=== PATIENT | female | born 1995 | race Caucasian/White ===

== ENCOUNTER 2018-07-31 12:21 | Emergency (ER) | payer MEDICAID, OTHER ==
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
[2018-07-31] MEDS ORDERED: HYDROCODONE/ACETAMINOPHEN 5-325 MG (6 TAB/ER DISP) PO PRN (14:36)
[2018-07-31 15:15] VITALS: BP 120/81
== END 2018-07-31 15:16 | disposition home or self-care (01) ==
LOC: ER 12:21
DX: L02.31 Cutaneous abscess of buttock (principal)
CPT/HCPCS: 99283; 10060; A6266

== ENCOUNTER 2020-03-08 12:15 | Emergency (ER) | payer OTHER ==
[2020-03-08 12:27] VITALS: BP 132/82
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
== END 2020-03-08 12:40 | disposition home or self-care (01) ==
LOC: ER 12:15
DX: R51 Headache (principal); Y04.2XXA Assault by strike against or bumped into by another person, initial encounter
CPT/HCPCS: 99283